=== PATIENT | female | born 1990 | race Caucasian/White ===

== ENCOUNTER → 2017-08-06 21:27 | Outpatient (CLI) | payer MEDICAID, SELFPAY ==
[2017-08-09 13:05] LABS: HPV Reflexed? NOT INDICATED
== END ==
PROVIDERS: Visit Provider Obstetrics & Gynecology
DX: Z12.4 Encounter for screening for malignant neoplasm of cervix (principal)
CPT/HCPCS: 88175; G0145

== ENCOUNTER → 2018-06-03 14:56 | Outpatient (CLI) | payer MEDICAID, SELFPAY ==
[2018-06-03 17:50] LABS: Chlamydia Trachomatis by PCR Negative (Negative); Neisserai gonorrhoeae by PCR Negative (Negative); Probe Check PASS; Sample Adequacy Control PASS; Specimen Processing Control PASS
== END ==
PROVIDERS: Visit Provider Obstetrics & Gynecology
DX: Z11.3 Encounter for screening for infections with a predominantly sexual mode of transmission (principal)
CPT/HCPCS: 87491; 87591

== ENCOUNTER → 2018-06-10 11:08 | Outpatient (CLI) | payer MEDICAID, SELFPAY ==
[2018-06-10 13:54] LABS: Color, Urine Yellow (Yellow); Glucose, Dipstick 250 mg/dl (Normal); Ketone-Dipstick 5 mg/dl (Negative); Leukocyte Esterase-Dipstick 500 /ul (Negative); Nitrite-Dipstick Negative (Negative); Occult Blood-Urine 10 /ul (Negative); Protein-Dipstick 15 mg/dl (Negative); Urine Bilirubin Dipstick Negative (Negative); Urine Clarity Cloudy (Clear); Urine Urobilinogen Normal (Normal)
[2018-06-10 14:01] LABS: COTININE Drug Screen Negative (<200 ng/mL)
[2018-06-10 14:08] LABS: Absolute Lymphocyte Count 2.33 X10^3/ul (0.83-4.51); Absolute Neutrophil Count 6.3 X10^3/uL (2.0-7.7); Basophil# 0.01 X10^3/uL; Basophil% 0.1 % (0-1); Eosinophil# 0.03 X10^3/uL; Eosinophils% 0.3 % (0-5); Hematocrit 37.3 % (37-47); Hemoglobin 12.4 g/dl (12.0-15.0); Lymphocyte # 2.33 X10^3/ul (4.0); Lymphocyte % 25.1 % (19-41); Mean Corp Hgb Conc 33.2 g/gl (32-36); Mean Corpuscular Hgb 28.5 pg (27.0-32.0); Mean Corpuscular Volume 85.7 fL (81-99); Mean Platelet Vol. 10.3 fl (6.2-12.0); Monocyte# 0.62 X10^3/uL; Monocyte% 6.7 % (0-10); Neutrophil # 6.28 X10^3/uL (2.7-7.7); Neutrophil % 67.7 % (47-70); Platelet Count 224 K/mm3 (150-450); RBC Distribution Width CV 13.5 % (11.6-14.6); RBC Distribution Width SD 42.4 fl (35.1-43.9); Red Blood Count 4.35 M/mm3 (4.2-5.4); White Blood Count 9.3 K/mm3 (4.4-11.0)
[2018-06-10 14:12] LABS: Thyroid Stim Hormone (TSH) 0.36 uIU/mL (0.358-3.74)
[2018-06-10 14:13] LABS: Amphetamine Urine VISTA NEGATIVE (<1000 ng/mL); Barbiturate Urine VISTA NEGATIVE (< 200 ng/mL); Benzodiazepine Urine VISTA NEGATIVE (< 200 ng/mL); Cocaine Urine VISTA NEGATIVE (< 300 ng/mL); Ecstacy Urine VISTA NEGATIVE (< 500 ng/mL); Methadone Urine VISTA NEGATIVE (< 300 ng/mL); PCP Urine VISTA NEGATIVE (< 25 ng/mL); THC Urine VISTA NEGATIVE (< 50 ng/mL); Vista UDS pH Range 6
[2018-06-10 14:14] LABS: POSITIVE COUNT NO; POSITIVE DIFFERENTIAL NO; POSITIVE MORPHOLOGY NO
[2018-06-10 14:53] LABS: HIV - WCH Non-Reactive (Nonreactive); Rubella IgG 456.4 IU/mL
[2018-06-11 08:35] LABS: HEPATITIS B SURFACE AG Negative (Negative); Hep C Antibodies <0.1 s/co ratio (0.0-0.9)
[2018-06-14 03:30] LABS: Prenatal RPR NONREACTIVE (NONREACTIVE)
== END ==
PROVIDERS: Visit Provider Obstetrics & Gynecology
DX: Z34.81 Encounter for supervision of other normal pregnancy, first trimester (principal)
CPT/HCPCS: 36415; 80307; 81002; 84443; 85025; 86703; 86762; 86803; 87340

== ENCOUNTER → 2018-10-14 14:02 | Outpatient (CLI) | payer MEDICAID, SELFPAY ==
[2018-10-14 17:29] LABS: Glucose Challenge Gest 1H 50g 118 mg/dL (70-140)
[2018-10-14 17:41] LABS: Hematocrit 33.5 % (37-47); Hemoglobin 11.1 g/dl (12.0-15.0); Mean Corp Hgb Conc 33.1 g/gl (32-36); Mean Corpuscular Hgb 28.4 pg (27.0-32.0); Mean Corpuscular Volume 85.7 fL (81-99); Mean Platelet Vol. 10.9 fl (6.2-12.0); Platelet Count 210 K/mm3 (150-450); RBC Distribution Width CV 13.9 % (11.6-14.6); RBC Distribution Width SD 42.8 fl (35.1-43.9); Red Blood Count 3.91 M/mm3 (4.2-5.4); White Blood Count 10.3 K/mm3 (4.4-11.0)
[2018-10-14 17:42] LABS: Scan Indicated on CBC? Y/N NO
== END ==
PROVIDERS: Visit Provider Obstetrics & Gynecology
DX: Z34.83 Encounter for supervision of other normal pregnancy, third trimester (principal)
CPT/HCPCS: 36415; 82950; 85027

== ENCOUNTER 2018-12-16 16:40 | Observation (INO) | payer MEDICAID, SELFPAY ==
[2018-12-16 16:32] VITALS: BMI 37.9
[2018-12-16 16:54] LABS: Protein, Urine (Random) 6.2 mg/dL (<11.9); Protein:Creat Ratio 330 mg/g CRE (0-200)
[2018-12-16 16:55] LABS: AST(SGOT) 9 U/L (15-37); Alanine Aminotransfer ALT/SGPT 12 U/L (13-56); Creatinine, Serum 0.52 mg/dL (0.55-1.02); EST Glomerular Filtration Rate 151 mL/min (>60); Est Glom Filt Rate - Afr Amer 183 mL/min (>60); Estimated Creatinine Clearance 140.33 ml/min; Uric Acid 5.1 mg/dL (2.6-6.0)
[2018-12-16 16:57] LABS: Hematocrit 33.8 % (37-47); Hemoglobin 11.2 g/dl (12.0-15.0); Mean Corp Hgb Conc 33.1 g/gl (32-36); Mean Corpuscular Hgb 28.1 pg (27.0-32.0); Mean Corpuscular Volume 84.7 fL (81-99); Mean Platelet Vol. 11.6 fl (6.2-12.0); Platelet Count 192 K/mm3 (150-450); RBC Distribution Width CV 14.9 % (11.6-14.6); RBC Distribution Width SD 45.7 fl (35.1-43.9); Red Blood Count 3.99 M/mm3 (4.2-5.4); Scan Indicated on CBC? Y/N NO; White Blood Count 8.4 K/mm3 (4.4-11.0)
[2018-12-16 17:49] LABS: Prothrombin Time (Protime)PT. 13.2 SECONDS (11.7-14.9)
[2018-12-16 17:50] LABS: Partial Thromboplast Time 24.7 Seconds (24.1-36.2)
--- NOTE | 2018-12-16 18:57 | PCM.HPOB.BLA ---
History and Physical Date of Admission: 12/16/18 HISTORY AND PHYSICAL History of this : 28 yo female Ab0 with EDC 01/09/2019 by 8 weeks 6 days Ultrasound, sent in from the office at 36 4/7 wk EGA to Labor and Delivery for bedrest, PIH labs and observation. CC to ofc today:prg and calling re pain. Pt states that baby is really pushing and out on her stomach which is harder than normal. Her BP was 141/92 this am and she has had inc swelling and it is getting worse. Pt did not sleep last night much. Pt denies luis and her vision is usual for when she changes from contacts to glasses. Baby is moving. She is on BP medication. She is on Labetalol and baby ASA daily. Her pulse is 103 today also. The pain does not feel like contx but on the side of her stomach and in pubic bone. She just is not feeling well today. care remarkable for - 1.) Fam hx of heart defects in 2 siblings 2.) Hx Exercise Induced Asthma, Inhaler 3.) EDC by 9 1/2 wk sono -- 01/09/19 4.) HTN prior to on propranolol then stopped; start labetalol 100 mg BID. 5.) FOB born w/Bowel Prob, Colostomy age 2 mo. Pertinent Past Medical History: Abdominal pains, Some elevated BPs at home. Allergies: NKDA Medications: During - propranolol 80 mg tablet; sumatriptan 50 mg tablet; labetalol 100 mg tablet; 28 mg iron-800 mcg tablet; aspirin 81 mg tablet,delayed release Review of Systems: As above. PHYSICAL EXAMINATION General Appearence: 28 yo female in no acute distress Vital Signs: AFeb, BP in ofc 150/100. Abdomen: gravid Cervix: L/TH/closed. Presentation: VTX Fetus: Size: AGA Movement: present Heart: present Category I tracing. Impression /Plan: Intrauterine . 36 4/7 wk EGA Chronic HTN and with elevated BPs at home and in ofc. To [facility] for observation and bedrest. PIH labs. Consider betamethasone. Consider induction at 37 wk EGA. See Progress Notes for Changes: Physician's Signature: Date: H and P GENERATED at time / date of admission from office. Yannick Edwards MD 12/16/18 0039
[2018-12-16] MEDS: Betamethasone/Betamethasone 30 MG/5 ML Vial 12 MG IM (19:04)
[2018-12-16] MEDS: Prenatal Vits Tablet 1 TABLET PO (21:54)
[2018-12-16] MEDS: Labetalol 100 MG Tablet PO (21:54)
[2018-12-16] MEDS: Aspirin 81 MG TAB.CHEW PO (21:55)
[2018-12-17] MEDS: Labetalol 100 MG Tablet PO (09:58)
[2018-12-17] MEDS: Betamethasone/Betamethasone 30 MG/5 ML Vial 12 MG IM (18:26)
--- NOTE | 2018-12-17 19:25 | PCM.PN.BLA ---
Progress Note OBSERVATION progress note. LATE ENTRY from 7-8 am rounds. Slept ok, hoping to go home today. States bed not comfortable. AVSS BPs remain elevated. 145/92, 162/87, 144/87 EFM 120-130s avg variability accels Irregular UCs CX deferred. Unfavorable in ofc yesterday A/P: 36 5 with chronic HTN. Superimposed preeclampsia vs PIH. BPs remain labile. On Labetalol 100 mg po bid. PIH bloodwork WNL., including LFTs, Plts, Cr. Prot/Cr ratio elevated. 24 hr urine protein in progress Plan for second dose of betamethasone this evening, completion of 24 hr urine. Home on bedrest with plan to induce at 37 + wks. but with unfavorable cervix. RTO for next PNV and recheck cervix. Decide on induction timing and method at that PNV.
[2018-12-17 19:56] LABS: 24HR. UA Prot. Total Volume 2250 mL
--- NOTE | 2018-12-18 08:22 | PCM.DC.SUM ---
Discharge Date and Diagnosis Date of Admission: 12/16/18 - 36 4/7 wk EGA chronic HTN Date of Discharge: 12/17/18 - 36 5/7 wk EGA chronic HTN Hospital Course and Treatment Summary of Care Provided: The patient is a 28 year old female at 36 4/7 wk EGA with chronic HTN possible superimposed preeclampsia Admitted for PIH labs from office including 24 hr urine. Betamethasone given two doses. PIH labs WNL except Prot/Cr spot check high. 24 hr urine protein 270 mg. Sent home to continue bedrest Consider induction of labor after 37 wks. Keep next appt in ofc with Dr. Smith as scheduled. - Physical Exam Weight: 100.3 kg Body Mass Index (BMI) 37.9 Laboratory Tests Past 24 Hrs 12/16/18 18:30 Urine Collection Time 24.0 Timed Urine Volume 2250 Ur Total Protein 24 Hr 270.0 H Urine Total Protein 12.0 H Home Medications: Medications to take at Discharge Aspirin [Aspir 81] 81 mg PO DAILY 12/16/18 Labetalol [Trandate] 100 mg PO DAILY 12/16/18 Vits [Prenatabs FA] 1 tab PO DAILY 12/16/18 Meaningful Use Info Meaningful Use Diagnoses (Choose all that apply): None applicable
== END 2018-12-17 20:55 | disposition home or self-care (01) ==
LOC: WPOUT 12-17 09:56
PROVIDERS: Admitting Provider Obstetrics & Gynecology; Visit Provider Obstetrics & Gynecology
DX: O10.913 Unspecified pre-existing hypertension complicating pregnancy, third trimester (principal); Z3A.36 36 weeks gestation of pregnancy; Z36.85 Encounter for antenatal screening for Streptococcus B
CPT/HCPCS: 36415; 59025; 59050; 82565; 82570; 84156; 84450; 84460; 84550; 85027; 85610; 85730; 87081; 96372; 99218; G0378; J0702

== ENCOUNTER → 2018-12-16 17:02 | Outpatient (CLI) | payer MEDICAID, SELFPAY ==
[2018-12-16 16:32] VITALS: BMI 37.9
== END ==
PROVIDERS: Visit Provider Obstetrics & Gynecology
DX: Z36.85 Encounter for antenatal screening for Streptococcus B (principal)
CPT/HCPCS: 87081

== ENCOUNTER 2018-12-18 19:43 | Outpatient (CLI) | payer MEDICAID, SELFPAY ==
[2018-12-18 20:31] VITALS: BMI 37.6
[2018-12-18] MEDS: Acetaminophen 500 MG Tablet 1000 MG PO (21:36)
[2018-12-18] MEDS: Ondansetron ODT 4 MG Tablet 8 MG PO (21:36)
--- NOTE | 2018-12-19 12:49 | OB.TRI.HP_ITS ---
History of Present Illness Date of Service: 12/18/18 Was patient seen by the physician?: Yes Reason For Visit: RULE OUT LABOR Date of Service: 12/18/18 Final BIANKA: 01/09/19 Final BIANKA Source: US <20 weeks Gestational age: 36 Weeks and 6 Days History of Present Illness: 28 yo with chronic HTN and worsening PIH labs presents for labor check, well being assessment. Recently dischg from [facility] to bedrest at home. She continues on Labetalol 100 mg po bid. PIH labs just done all WNL except for spot check Prot/Cr ratio high. 24 hr urine protein: 270 mg. Pt states laying in bed all day and sleeping off and on most of day. Then got up to eat and ate chicken salad and then just did not feel well. Not sure baby is moving enough. Also states REARDON, but has not taken anything for this. Allergies No Known Allergies Allergy (Verified 12/18/18 20:32) Review of Systems Constitutional: Reports: Malaise - just not feeling well after eating chicken salad and resting / sleeping all day. HEENT: Reports: Head Aches Physical Exam General: Alert, Oriented x3, Cooperative, No apparent distress HEENT: Atraumatic, EOMI Abdomen: Soft, Non Tender, Gravid Extremities:: No edema NST - FHR Rate Baby A Baseline: 130-140s avg variability Accels to 170s prolonged accels Variability:: Moderate Accelerations:: 15 x 15 Decelerations:: None NST Reactive:: Yes, Appropriate for gestational age FHR Category:: Category I Uterine Activity:: Rare UC noted. Impression/Plan 36 6/7 wk EGA . Chronic HTN with superimposed PIH. Preeclampsia labs all WNL one day prior Got betamethasone also. REARDON: no meds taken. Tylenol 1000 mg x one given. Minimal REARDON after that Nausea; Zofran given. Tolerated PO. Malaise: adivsed BPs here all WNL 130-140s / 80s. Reviewed plan for bedrest -- back and forth to cough, bed, kitchen for snack, bathroom, etc. Encouraged to maintain normal sleep and wake cycle as this should help. RTO as planned , and consider induction at 37+ wks EGA
== END 2018-12-19 01:20 | disposition home or self-care (01) ==
LOC: WPOUT 20:10 → WP 20:11
PROVIDERS: Referring Provider Obstetrics & Gynecology; Visit Provider Obstetrics & Gynecology
DX: O10.913 Unspecified pre-existing hypertension complicating pregnancy, third trimester (principal); O13.3 Gestational [pregnancy-induced] hypertension without significant proteinuria, third trimester; Z3A.36 36 weeks gestation of pregnancy
CPT/HCPCS: 59025; 59050; 99218; G0378

== ENCOUNTER 2019-01-05 19:55 | Outpatient (CLI) | payer MEDICAID, SELFPAY ==
[2019-01-05 20:21] VITALS: BMI 38.6
[2019-01-05 20:45] VITALS: RESP 18
--- NOTE | 2019-01-07 07:17 | OB.TRI.NOTE ---
History of Present Illness Date of Service: 01/05/19 Was patient seen by the physician?: No Reason For Visit: ELEVATED BLOOD RESSURE Date of Service: 01/05/19 Final BIANKA: 01/09/19 Final BIANKA Source: US <20 weeks Gestational age: 39 Weeks and 4 Days History of Present Illness: 28 yo presents for BP check Chronic HTN and did not take her AM dose of labetalol so BP at home reported high. BPs in L and D: 140's/70-80s Allergies No Known Allergies Allergy (Verified 01/05/19 20:23) Physical Exam Vitals: Vital Signs Resp 18 01/05/19 20:45 NST - FHR Rate Baby A Baseline: 140s avg variability. Accels to 165 Variability:: Moderate Accelerations:: 15 x 15 Decelerations:: None NST Reactive:: Yes, Appropriate for gestational age FHR Category:: Category I Uterine Activity:: rare UC noted Impression/Plan 39 3/7 wk EGA Chronic HTN BPs ok at check Home. Keep appt for PNV as scheduled. Consider induction at that appt., given PIH, chronic HTN Term.
== END 2019-01-05 20:45 | disposition home or self-care (01) ==
LOC: WPOUT 20:12 → WP 20:13
PROVIDERS: Referring Provider Obstetrics & Gynecology; Visit Provider Obstetrics & Gynecology
DX: O10.913 Unspecified pre-existing hypertension complicating pregnancy, third trimester (principal); Z3A.39 39 weeks gestation of pregnancy
CPT/HCPCS: 59025; 59050; 99218; G0378

== ENCOUNTER 2019-01-07 07:09 | Inpatient (IN) | payer MEDICAID, SELFPAY ==
[2019-01-07] VITALS (21 sets, daily range): BP systolic 139–183; BP diastolic 73–113; PULSE 75–107; RESP 16–18; TEMP 36.7–36.9; O2SAT 99–100; BMI 38.8
[2019-01-07] MEDS: Lactated Ringers 1,000 ML 50 ML IV (07:50)
[2019-01-07 08:04] LABS: Absolute Lymphocyte Count 2.53 X10^3/uL (0.83-4.51); Absolute Neutrophil Count 5.8 X10^3/uL (2.0-7.7); Basophil# 0.01 X10^3/uL; Basophil% 0.1 % (0-1); Eosinophil# 0.07 X10^3/uL; Eosinophils% 0.8 % (0-5); Hematocrit 33.5 % (37-47); Hemoglobin 11.2 g/dL (12.0-15.0); Lymphocyte # 2.53 X10^3/ul (4.0); Lymphocyte % 27.9 % (19-41); Mean Corp Hgb Conc 33.4 g/dL (32-36); Mean Corpuscular Hgb 28.7 pg (27.0-32.0); Mean Corpuscular Volume 85.9 fL (81-99); Mean Platelet Vol. 11.5 fl (6.2-12.0); Monocyte% 6.6 % (0-10); NRBC Flagged by Analyzer 0 % (0-5); Neutrophil # 5.84 X10^3/uL (2.7-7.7); Neutrophil % 64.3 % (47-70); Platelet Count 177 K/mm3 (150-450); RBC Distribution Width CV 15.4 % (11.6-14.6); RBC Distribution Width SD 47.6 fl (35.1-43.9); White Blood Count 9.1 K/mm3 (4.4-11.0)
[2019-01-07] MEDS: Oxytocin 30 units/NS 500 ml 30 UNITS/500 ML IV.SOLN IV (08:06)
--- NOTE | 2019-01-07 08:24 | PCM.HPOB.BLA ---
History and Physical Date of Admission: 01/07/19 OB HISTORY AND PHYSICAL EXAMINATION History of this : 28 yo female Ab0 with EDC 01/09/2019 by 8 weeks 6 days Ultrasound, presents to Labor and Delivery for induction of labor due to chronic HTN and oligohydramnios at 39 5/7 wk EGA care remarkable for 1.) Fam hx of heart defects in 2 siblings 2.) Hx Exercise Induced Asthma, Inhaler prn 3.) EDC changed by 9 1/2 wk sono to 01/09/19 4.) Chronic HTN prior to on propranolol then stopped; start labetalol 100 mg BID 5.) FOB born w/Bowel Prob, Colostomy age 2 mo. Pertinent Past Medical History: chronic HTN Allergies: NKDA Medications: During - labetalol 100 mg tablet; 28 mg iron-800 mcg tablet; aspirin 81 mg tablet,delayed release Review of Systems: Non-contributory PHYSICAL EXAMINATION General Appearance: 28 yo female in no acute distress Vital Signs: AF, VSS Heart: RRR without rubs or gallops Lungs: CTA x 2 Breasts: deferred Abdomen: gravid Pelvis: adequate Prior . Cervix: 2 cm/50/moderately firm, -2 VTX AROM clear trickle of fluid Size: AGA Movement: present Heart: 130-140s avg variability. Accels. Rare UC noted. Impression /Plan: Intrauterine . Chronic HTN and oligo.at 39 5/7 wk EGA Admit for induction of labor. Pitocin, AROM. Fluid clear and EFM reassuring, category I History and physical generated at time of admission no changes Yannick Edwards MD 01/07/19 0875
[2019-01-07] MEDS: Lactated Ringers 1,000 ML 1000 ML IV (10:37)
[2019-01-07] MEDS: Lactated Ringers 1,000 ML 200 ML IV (11:09)
[2019-01-07] MEDS: fentaNYL-bupivacaine (epidural) 100 ML BAG EPIDURAL (11:30)
[2019-01-07] MEDS: Oxytocin 30 units/NS 500 ml 30 UNITS/500 ML IV.SOLN 334 UNITS IV (12:19)
--- NOTE | 2019-01-07 12:35 | DCINST_ITS ---
Discharge Diet: No Restrictions Discharge Activity: May Shower, May Take a Tub Bath May resume sexual activity in: 4-6 weeks Additional Activity Instructions:: Nothing in the vagina for 4-6 weeks. You may return to work/school in 6 weeks. Additional Instructions: If you experience any of the following, contact your healthcare provider. * Bleeding that soaks a pad every hour for 2 hours * Fever 100.4 or higher * Unrelieved abdominal pain * Problems urinating (including inability to urinate or burning while urinating). * Visual changes * Severe headache * Flu-like symptoms * Pain or redness in one of both of your breasts * Pain, warmth, tenderness or swelling in your legs, especially the calf area * Frequent nausea and vomiting * Symptoms of depression or anxiety If you experience any of the following, call 911 or go to the nearest Emergency Room. * Chest pain * Problems breathing * Seizure activity * Partial or complete paralysis of a body part, slurred speech, weakness or drooping of the face, or a sudden inability to walk or hold your balance Allergies/Adverse Reactions: Allergies No Known Allergies Allergy (Verified 01/07/19 07:38) Medications to take at Discharge Aspirin [Aspir 81] 81 mg PO DAILY 12/16/18 Labetalol [Trandate] 100 mg PO BID 12/16/18 Vits [Prenatabs FA] 1 tab PO DAILY 12/16/18 Please Follow Up With: Orlando Smith MD - [phone] When: Call to make an appointment with your doctor in 6 weeks. If you had elevated Blood Pressure or 4th degree laceration you will need to be seen in 2 weeks. Test Results: Test results from this visit will be discussed in further detail at your follow- up appointment, if applicable. Proposed Discharge Date: 01/09/19
--- NOTE | 2019-01-07 12:35 | PCM.DCVAG ---
Discharge Diet: No Restrictions Discharge Activity: May Shower, May Take a Tub Bath May resume sexual activity in: 4-6 weeks Additional Activity Instructions:: Nothing in the vagina for 4-6 weeks. You may return to work/school in 6 weeks. Additional Instructions: If you experience any of the following, contact your healthcare provider. Bleeding that soaks a pad every hour for 2 hours Fever 100.4 or higher Unrelieved abdominal pain Problems urinating (including inability to urinate or burning while urinating). Visual changes Severe headache Flu-like symptoms Pain or redness in one of both of your breasts Pain, warmth, tenderness or swelling in your legs, especially the calf area Frequent nausea and vomiting Symptoms of depression or anxiety If you experience any of the following, call 911 or go to the nearest Emergency Room. Chest pain Problems breathing Seizure activity Partial or complete paralysis of a body part, slurred speech, weakness or drooping of the face, or a sudden inability to walk or hold your balance Allergies/Adverse Reactions: Allergies No Known Allergies Allergy (Verified 01/07/19 07:38) Medications to take at Discharge Aspirin [Aspir 81] 81 mg PO DAILY 12/16/18 Labetalol [Trandate] 100 mg PO BID 12/16/18 Vits [Prenatabs FA] 1 tab PO DAILY 12/16/18 Please Follow Up With: Orlando Smith MD - [phone] When: Call to make an appointment with your doctor in 6 weeks. If you had elevated Blood Pressure or 4th degree laceration you will need to be seen in 2 weeks. Test Results: Test results from this visit will be discussed in further detail at your follow-up appointment, if applicable. Proposed Discharge Date: 01/09/19
--- NOTE | 2019-01-07 12:36 | PCM.OPRPT ---
Vaginal Delivery Maternal Presentation: Medically Indicated Induction 39 5/7 wk Oligo Chronic HTN for induction Method of Induction: Pitocin, Amniotomy Amniotic Membrane Rupture Type: Artificial Amniotic Fluid Description: Clear Final BIANKA: 01/09/19 Final BIANKA Source: US <20 weeks Gestational age: 39 Weeks and 5 Days Date of Procedure: 01/07/19 Pre-Operative Diagnosis: 39 5/7 wk induction Chronic HTN Oligohydramnios Post-Operative Diagnosis: same Surgery/ Procedure Performed: Spontaneous Vaginal Delivery Anesthesiologist: Ramesh Poole MD Type of Anesthesia: Epidural Description of Procedure: of a appel viable male over intact perineum. Rapid progress, epidural not fully effective due to rapid transition. Head delivered CYN. OP and nares bulb suctioned on perineum. No nuchal cord, Shoulders delivery easily. Infant to maternal abdomen with spont cry. Weight pending. Ap PP exam; no lacerations noted Placenta delivered by spont expulsion, expression 3 V cord, normal appearing, intact with trailing membranes. Pt and tolerated delivery well. To recovery, stable condition Ray Ainsley counts correct times two. Presentation: Vertex, CYN Placental Delivery Description: Spontaneous, Expressed Placenta Disposition: [facility] Cord Vessel Description: 3 Vessels Cord Entanglement: None Estimated Blood Loss: 100 Infant A gender: Male Episiotomy Description: None Laceration: None Medications given after delivery: IV Pitocin Complications: None
[2019-01-07] MEDS: Oxytocin 30 units/NS 500 ml 30 UNITS/500 ML IV.SOLN 167 UNITS IV (12:39)
[2019-01-07] MEDS: Ibuprofen 600 MG Tablet PO (17:44)
[2019-01-07] MEDS: 0.9% Saline Lock 10 ML Syringe IV (20:54)
[2019-01-07] MEDS: Acetaminophen 500 MG Tablet 1000 MG PO (21:05)
--- NOTE | 2019-01-07 21:07 | PCM.PN.BLA ---
Progress Note Alerted pt with elevated BPs postparum, now worsening. hx cHTN on Labetalol 100mg PO. chart reviewed and BPs normal to mildly elevated. At bedside pt denies headache, vision changes, shortness of breath, chest pain or abdominal pain. + cramping associated with . Patient feels well. RRR, CTAB, abdomen soft, NT, no clonus or hyperreflexia with +1 b/l LE DTRs. CMP, uric acid pending. IV Labetalol 20mg x 1 given with significant improvement of BPs. Will continue to monitor. f/u labs.
--- NOTE | 2019-01-07 21:29 | NURSING ---
late entry- 2010-noted elevated bp, reflexes 1+ no clonus noted. pt denies feeling symptomatic, is feeling cramping with nursing. 2042-dr cammie pearce on unit, made aware of bp trends charted, orders received. will be in to see pt. 2053-dr cammie pearce at pt bedside, assessed pt. labetalol 20mg ivp given x1, to monitor bp q10 min for the next 20 minutes and then to let dr cammie pearce know. 2101-dr cammie pearce out of room. 2111-dr cammie pearce on unit aware of bp results of 140's/80's after receiving the labetalol dose. order received for labetalol po dose increased to 200mg po bid
[2019-01-07 21:34] LABS: ALB/GLOB Ratio 0.7 RATIO (0.9-2.4); AST(SGOT) 17 U/L (15-37); Alanine Aminotransfer ALT/SGPT 16 U/L (13-56); Albumin, Serum 2.4 g/dL (3.2-5.0); Alkaline Phosphatase 111 U/L (45-117); Anion Gap 11 (5-15); BUN 13 mg/dL (7-18); BUN/Creat Ratio 17.6 RATIO (10-20); Chloride 106 mmol/L (98-107); Creatinine, Serum 0.74 mg/dL (0.55-1.02); EST Glomerular Filtration Rate 100 mL/min (>60); Est Glom Filt Rate - Afr Amer 121 mL/min (>60); Estimated Creatinine Clearance 98.61 ml/min; Globulin 3.6 g/dL (2.2-4.2); Glucose 81 mg/dL (74-106); Sodium Level 140 mmol/L (136-145); Uric Acid 6.1 mg/dL (2.6-6.0)
[2019-01-07] MEDS: Labetalol 200 MG Tablet PO (22:29)
[2019-01-08] VITALS (25 sets, daily range): BP systolic 120–157; BP diastolic 54–98; PULSE 82–105; RESP 16–18; TEMP 36.3–37; O2SAT 18–98
[2019-01-08] MEDS: 0.9% Saline Lock 10 ML Syringe IV (00:21)
[2019-01-08] MEDS: Magnesium Sulfate 20 GM/500 ML BAG IV (01:01)
--- NOTE | 2019-01-08 08:08 | PCM.PN.OB ---
Subjective: PPD#1 Chronic HTN BPs worsening last night and started on IV Magnesium sulfate. HTN protocol IV labetalol given . now on Labetalol 200 mg po bid. CC of fatigue this am. Breast feeding and some inc cramping with nursing. Objective: Lying in bed. Appears tired. - Physical Exam General: Oriented x3, Cooperative, No apparent distress HEENT: Atraumatic, EOMI Neck: Supple Abdomen: Soft - FUndus firm NT approx 1-2 cm inferior to umbilicus Lymphatic: No Cervical, Supraclavicular, or Inguinal Adenopathy Psych/Mental Status: Normal Affect Vital Signs Temp Pulse Resp BP Pulse Ox 97.9 F 85 16 138/72 H 96 01/08/19 07:05 01/08/19 07:05 01/08/19 07:05 01/08/19 07:05 01/08/19 07:05 Oxygen Delivery Method Room Air Weight: 102.7 kg Body Mass Index (BMI) 38.8 Intake and Output for Last 24 Hours 01/06/19 01/07/19 01/08/19 23:59 23:59 23:59 Intake Total 2226 / 2226 1338 / 1338 Output Total 1100 / 1100 2162 / 2162 Balance 1126 / 1126 -824 / -824 Laboratory Tests Past 24 Hrs 01/07/19 01/07/19 07:50 20:55 Sodium 140 Potassium 4.0 Chloride 106 Carbon Dioxide 23.0 Anion Gap 11 BUN 13 Creatinine 0.74 Estim Creat Clear Calc 98.61 Est GFR (MDRD) Af Amer 121 Est GFR (MDRD) Non-Af 100 BUN/Creatinine Ratio 17.6 Glucose 81 Uric Acid 6.1 H Calcium 9.0 Total Bilirubin 0.20 AST 17 ALT 16 Alkaline Phosphatase 111 Total Protein 6.0 L Albumin 2.4 L Globulin 3.6 Albumin/Globulin Ratio 0.7 L Blood Type A POSITIVE Antibody Screen NEGATIVE Medical Necessity - Tobacco Use Smoking Status: Never smoker Assessment/Plan PPD#1 Chronic HTN Worsening of BPs after delivery. Started on Magnesium sulfate last night approx MN. BPs this am better: 130-150s /70-80s. Continue magnesium sulfate IV until approx 12 hr after started, discontinue at noon. Continue care.
[2019-01-08] MEDS: Ibuprofen 600 MG Tablet PO (09:09)
--- NOTE | 2019-01-08 10:40 | NURSING ---
During pt 1000 Mag check blood pressure 125/69. Trandate 200mg due at this time also. Called Dr. Edwards to verify medication order. Per Dr. Edwards discontiue magnesium at this time, also hold Trandate at this time. Will call back if pt has blood pressures 150/90 to discuss medications to give. Magnesium turned off at 1030.
[2019-01-08] MEDS: Prenatal Vits Tablet 1 TABLET PO (12:22)
--- NOTE | 2019-01-08 14:03 | PCM.PN.BLA ---
Progress Note PPD#1 Chronic HTN IV magnesium sulfate discontinued and held dose of Labetalol earlier today for lower BP 120/70 approx. Continue pp care.
[2019-01-08] MEDS: Acetaminophen 500 MG Tablet 1000 MG PO (21:03)
[2019-01-08] MEDS: Labetalol 100 MG Tablet PO (21:03)
[2019-01-09 02:28] VITALS: BP 136/80; BP 152/82; PULSE 93; RESP 18; TEMP 37
--- NOTE | 2019-01-09 07:32 | PCM.PN.OB ---
Subjective: PPD#2 PIH, chronic HTN induction at 39+ wks Doing well. Denies PIH sx. Breast feeding and baby up a lot at night. Pain minimal. Bleeding minimal. - Physical Exam General: Alert, Oriented x3, Cooperative, No apparent distress HEENT: Atraumatic, EOMI Neck: Supple Abdomen: Soft - Fundus firm NT 2 cm inferior to umbilicus Neurological: Cranial nerves II-XII grossly intact Psych/Mental Status: Normal Affect Vital Signs Temp Pulse Resp BP Pulse Ox 98.6 F 93 18 152/82 H 98 01/09/19 02:28 01/09/19 02:28 01/09/19 02:28 01/09/19 02:28 01/08/19 16:00 Oxygen Delivery Method Room Air Weight: 102.7 kg Body Mass Index (BMI) 38.8 Intake and Output for Last 24 Hours 01/07/19 01/08/19 01/09/19 23:59 23:59 23:59 Intake Total 2226 / 2226 2024 / 202 Output Total 1100 / 1100 3112 / 3112 Balance 1126 / 1126 -1087 / -1087 Medical Necessity - Tobacco Use Smoking Status: Never smoker Assessment/Plan PPD#2 Chronic HTN 39 + wk induction. BPs improved. S/P magnesium sulfate for approx 9 1/2 - 10 hr. resumed labetalol 100 mg po BID. and to continue this for up to 6 wk pp. Dischg home today RTO in 2 wk for BP check.
[2019-01-09 10:40] VITALS: BP 153/84; PULSE 93; RESP 16; TEMP 36.6
[2019-01-09] MEDS: Prenatal Vits Tablet 1 TABLET PO (10:49)
[2019-01-09] MEDS: Ibuprofen 600 MG Tablet PO (10:49)
[2019-01-09] MEDS: Labetalol 100 MG Tablet PO (10:49)
[2019-01-09 11:45] VITALS: BP 132/77
[2019-01-09 14:12] VITALS: BP 148/90; PULSE 88; RESP 16; TEMP 36.8
== END 2019-01-09 15:00 | disposition home or self-care (01) | DRG 560 ==
PROVIDERS: Obstetrics & Gynecology; Admitting Provider Obstetrics & Gynecology; Referring Provider Obstetrics & Gynecology; Visit Provider Obstetrics & Gynecology
DX: O13.4 Gestational [pregnancy-induced] hypertension without significant proteinuria, complicating childbirth (principal); O10.92 Unspecified pre-existing hypertension complicating childbirth; O41.03X0 Oligohydramnios, third trimester, not applicable or unspecified; J45.990 Exercise induced bronchospasm; K21.9 Gastro-esophageal reflux disease without esophagitis; Z79.82 Long term (current) use of aspirin; Z79.899 Other long term (current) drug therapy; Z3A.39 39 weeks gestation of pregnancy; Z37.0 Single live birth
CPT/HCPCS: 59025; 59050; 80053; 84550; 85025; 86850; 86900; 99218; J7120; A4216; G0378

== ENCOUNTER → 2019-02-20 13:02 | Outpatient (CLI) | payer MEDICAID, SELFPAY ==
[2019-01-07 07:37] VITALS: BMI 38.8
[2019-02-20 16:12] LABS: Chlamydia Trachomatis by PCR Negative (Negative); Neisserai gonorrhoeae by PCR Negative (Negative); Probe Check PASS; Sample Adequacy Control PASS; Specimen Processing Control PASS
[2019-02-26 12:13] LABS: HPV Reflexed? NOT INDICATED
== END ==
PROVIDERS: Visit Provider Obstetrics & Gynecology
DX: Z12.4 Encounter for screening for malignant neoplasm of cervix (principal); Z11.3 Encounter for screening for infections with a predominantly sexual mode of transmission
CPT/HCPCS: 87491; 87591; 87624; 88175; G0145

== ENCOUNTER 2020-03-28 13:53 | Emergency (ER) | payer MEDICAID, SELFPAY ==
[2019-01-07 07:37] VITALS: BMI 38.8
[2020-03-28 13:55] VITALS: BP 150/92; PULSE 80; RESP 16; TEMP 36.1; O2SAT 98; BMI 35.0
--- NOTE | 2020-03-28 14:49 | EKG12_ITS ---
Test Reason : CP Blood Pressure : / mmHG Vent. Rate : 076 BPM Atrial Rate : 076 BPM P-R Int : 168 ms QRS Dur : 096 ms QT Int : 380 ms P-R-T Axes : 054 048 034 degrees QTc Int : 427 ms Normal sinus rhythm Normal ECG Confirmed by HERBERT BETTS MD ([id number]), book editor MONI URBINA ([id number]) on 03/30/2020 10:29:31 AM Referred By: JEANETH/YONY Confirmed By:HERBERT BETTS MD
--- NOTE | 2020-03-28 14:49 | ED.VIS.GEN ---
History of Present Illness Chief Complaint: Chest Pain Informant: Patient Narrative: 9-year-old female with history of hypertension presenting with pinchy sided chest pain. She states that it felt like it was in her back and her left shoulder as well. She had nausea earlier but it is resolved and she was able to eat. She does not feel short of breath. She was not diaphoretic. The pinching chest pain comes and goes. Is not worse with deep inspiration. Patient has no cardiac history. She has no history of DVT/PE but her brother has had pulmonary emboli. Past Medical History - Allergies and Home Meds Allergies/Adverse Reactions: Allergies No Known Allergies Allergy (Verified 03/28/20 13:54) Primary Care Physician: Mike Christianson MD [Primary Care Provider] - Prior records reviewed: Yes Past Medical History: - - Hypertension Lives: Spouse/ Significant Other Smoking Status: Never smoker Alcohol: None Drugs: None Review of Systems General: Denies: Chills, Fever, Sweats Eyes: Denies: Visual changes - bilaterally, Diplopia ENT: Denies: Rhinorrhea, Sore throat Cardiovascular: Reports: Chest pain. Denies: Palpitations, Heart racing Respiratory: Denies: Dyspnea, Cough, Dyspnea on exertion Gastrointestinal: Reports: Nausea, Vomiting. Denies: Abdominal pain Genitourinary: Denies: Dysuria, Hematuria, Frequency Musculoskeletal: Denies: Back pain, Extremity Pain Skin: Denies: Rash, Wounds Neurological: Denies: Parasthesia, Numbness Physical Exam Vital Signs/Narrative: Vital Signs Temp Pulse Resp BP Pulse Ox 03/28/20 13:55 97 F L 80 16 150/92 H 98 General: Well nourished, No Acute Distress Head: Normocephalic, Atraumatic Eyes: Perrl, EOMI ENT: Moist mucous membranes, No rhinorrhea Cardiovascular: Regular rate, Regular rhythm Respiratory: No distress, CTA bilaterally Extremities: Nontender, No edema Skin: Normal color, No rash Neurological: Alert, Oriented x3 Psychological: Normal affect, Normal Mood Diagnostic/Tx/Re-eval Clinical Impression(s) from Imaging Studies Chest X-Ray 03/28/20 15:20 IMPRESSION: Nonacute portable x-ray examination of the chest. Electronically Signed: Jeremy Murray MD (Brooks) at 15:32 EDT , Service support , Laboratory Data 03/28/20 03/28/20 03/28/20 15:00 15:00 15:00 WBC 5.9 RBC 4.46 Hgb 12.4 Hct 39.0 MCV 87.4 MCH 27.8 MCHC 31.8 L RDW Std Deviation 42.9 RDW Coeff of Lori 13.3 Plt Count 219 MPV 10.4 Immature Gran % (Auto) 0.200 Neut % (Auto) 55.6 Lymph % (Auto) 35.6 [place] % (Auto) 7.3 Eos % (Auto) 1.0 Baso % (Auto) 0.3 Absolute Neuts (auto) 3.3 Absolute Lymphs (auto) 2.09 Nucleated RBC % 0 D-Dimer Quant (PE/DVT) 0.28 Sodium 140 Potassium 4.0 Chloride 109 H Carbon Dioxide 27.0 Anion Gap 4 L BUN 10 Creatinine 0.63 Estim Creat Clear Calc 114.80 Est GFR (MDRD) Af Amer 143 Est GFR (MDRD) Non-Af 118 BUN/Creatinine Ratio 15.8 Glucose 93 Calcium 9.0 Troponin I < 0.015 03/28/20 18:05 WBC RBC Hgb Hct MCV MCH MCHC RDW Std Deviation RDW Coeff of Lori Plt Count MPV Immature Gran % (Auto) Neut % (Auto) Lymph % (Auto) [place] % (Auto) Eos % (Auto) Baso % (Auto) Absolute Neuts (auto) Absolute Lymphs (auto) Nucleated RBC % D-Dimer Quant (PE/DVT) Sodium Potassium Chloride Carbon Dioxide Anion Gap BUN Creatinine Estim Creat Clear Calc Est GFR (MDRD) Af Amer Est GFR (MDRD) Non-Af BUN/Creatinine Ratio Glucose Calcium Troponin I < 0.015 - Rhythm Strip Rhythm Strip: Sinus Rhythm Rate: 76 - EKG Initial EKG Interpretation: Sinus Rhythm, No Acute Injury Pattern Follow-up EKG Interpretation: Sinus Rhythm, No Acute Injury Pattern Prior: Unchanged - Medical Decision Making Presenting with atypical chest pain which he states is pinching. Is not worse with deep inspiration. Patient's vital signs are stable and she is afebrile. She does not complain of shortness of breath. EKG is sinus rhythm 76 beats per minutes. Is no ischemic changes. Lab work and troponin are negative. Patient had delta troponin and EKG which were also unchanged. D-dimer negative. Given the patient's heart score of 1 for hypertension I believe the patient is stable for discharge at this time. Follow-up with your PCP on an outpatient basis. She is given return precautions. Impression: 1. Chest pain ED Disposition - Plan for ED Patient: Disposition: Home or Assisted Living Instructions: ED Chest Pain Noncardiac Ch Referrals: Mike Christianson MD [Primary Care Provider] -
[2020-03-28 15:03] VITALS: BP 125/87; PULSE 78; RESP 14; O2SAT 97
[2020-03-28] MEDS: Aspirin 81 MG TAB.CHEW 324 MG PO (15:03)
[2020-03-28 15:20] LABS: Absolute Lymphocyte Count 2.09 X10^3/uL (0.83-4.51); Absolute Neutrophil Count 3.3 X10^3/uL (2.0-7.7); Basophil# 0.02 X10^3/uL; Basophil% 0.3 % (0-1); Eosinophil# 0.06 X10^3/uL; Hemoglobin 12.4 g/dL (12.0-15.0); Lymphocyte # 2.09 X10^3/ul (4.0); Lymphocyte % 35.6 % (19-41); Mean Corp Hgb Conc 31.8 g/dL (32-36); Mean Corpuscular Hgb 27.8 pg (27.0-32.0); Mean Corpuscular Volume 87.4 fL (81-99); Mean Platelet Vol. 10.4 fl (6.2-12.0); Monocyte# 0.43 X10^3/uL; Monocyte% 7.3 % (0-10); NRBC Flagged by Analyzer 0 % (0-5); Neutrophil # 3.26 X10^3/uL (2.7-7.7); Neutrophil % 55.6 % (47-70); Platelet Count 219 K/mm3 (150-450); RBC Distribution Width CV 13.3 % (11.6-14.6); RBC Distribution Width SD 42.9 fl (35.1-43.9); Red Blood Count 4.46 M/mm3 (4.2-5.4); White Blood Count 5.9 K/mm3 (4.4-11.0)
--- NOTE | 2020-03-28 15:20 | RAD_ITS ---
STUDY: X-RAY CHEST REASON FOR EXAM: Female, 29 years old. chest pain TECHNIQUE: AP COMPARISON: None. FINDINGS: EKG leads project over the chest. The lungs are clear and expanded. There is no demonstrated pleural abnormality. Normal size heart. Normal mediastinum and carlos. Normal visualized pulmonary arteries. Normal visualized aortic arch and descending thoracic aorta. Normal visualized thoracic spine. Normal visualized ribs, clavicles, and shoulders. There is no demonstrated abnormality of the visualized soft tissue structures of the upper abdomen. RAD/Chest 1 View (Portable) IMPRESSION: Nonacute portable x-ray examination of the chest. Electronically Signed: Jeremy Murray MD (Brooks) at 15:32 EDT , Service support ,
[2020-03-28 15:27] LABS: D-Dimer Quantitative (DVT/PE) 0.28 FEU/ug/m (0.27-0.49)
[2020-03-28 15:51] LABS: Anion Gap 4 (5-15); BUN 10 mg/dL (7-18); BUN/Creat Ratio 15.8 RATIO (10-20); Chloride 109 mmol/L (98-107); Creatinine, Serum 0.63 mg/dL (0.55-1.02); EST Glomerular Filtration Rate 118 mL/min (>60); Est Glom Filt Rate - Afr Amer 143 mL/min (>60); Glucose 93 mg/dL (74-106); Sodium Level 140 mmol/L (136-145)
[2020-03-28 16:34] VITALS: BP 119/81; PULSE 86; RESP 19; O2SAT 100
[2020-03-28 17:12] VITALS: BP 120/84; PULSE 76; RESP 15; O2SAT 98
--- NOTE | 2020-03-28 18:00 | EKG12_ITS ---
Test Reason : REPEAT Blood Pressure : / mmHG Vent. Rate : 063 BPM Atrial Rate : 063 BPM P-R Int : 172 ms QRS Dur : 096 ms QT Int : 400 ms P-R-T Axes : 051 038 032 degrees QTc Int : 409 ms Normal sinus rhythm Normal ECG Confirmed by HERBERT BETTS MD ([id number]), editor in chief newspaper MONI URBINA ([id number]) on 03/30/2020 10:29:43 AM Referred By: PC Confirmed By:HERBERT BETTS MD
[2020-03-28 18:05] VITALS: BP 111/82; PULSE 89; RESP 15; O2SAT 97
[2020-03-28 19:03] VITALS: BP 117/85; PULSE 87; RESP 15; O2SAT 98
== END 2020-03-28 19:04 | disposition home or self-care (01) ==
PROVIDERS: Emergency Provider Student in an Organized Health Care Education/Training Program; PCP Family Medicine
DX: R07.89 Other chest pain (principal); I10 Essential (primary) hypertension; R11.0 Nausea; Z79.899 Other long term (current) drug therapy
CPT/HCPCS: 36415; 71045; 80048; 84484; 85025; 85379; 93005; 99283; A4216

== ENCOUNTER → 2020-07-29 16:09 | Outpatient (CLI) | payer MEDICAID, SELFPAY ==
[2020-08-03 16:18] LABS: HPV Reflexed? NOT INDICATED
== END ==
PROVIDERS: PCP Family Medicine; Visit Provider Obstetrics & Gynecology
DX: Z12.4 Encounter for screening for malignant neoplasm of cervix (principal)
CPT/HCPCS: 88175; G0145

== ENCOUNTER → 2023-05-21 | Outpatient (CLI) | payer MEDICAID, SELFPAY ==
[2023-05-25 11:08] LABS: HPV APTIMA, High Risk Negative (Negative)
== END | disposition home or self-care (01) ==
LOC: LABSPEC 16:34
PROVIDERS: PCP Family Medicine; Referring Provider Nurse Practitioner Women's Health; Visit Provider Nurse Practitioner Women's Health
DX: Z12.4 Encounter for screening for malignant neoplasm of cervix (principal)
CPT/HCPCS: 87624; 88175; G0145